=== PATIENT | male | born 1965 | race Caucasian/White ===

== ENCOUNTER → 2021-09-17 14:45 | Outpatient (BNVA) | payer OTHER, SELFPAY | PROVIDERS: Family Provider Pediatrics Adolescent Medicine; PCP Family Medicine; Visit Provider Family Medicine | DX: F32.9 Major depressive disorder, single episode, unspecified (principal); Z76.89 Persons encountering health services in other specified circumstances | CPT/HCPCS: 80053; 84439; 84443; 85025 ==

== ENCOUNTER → 2022-10-07 08:48 | Outpatient (BNVA) | payer BC, OTHER, SELFPAY | PROVIDERS: Family Provider Pediatrics Adolescent Medicine; PCP Family Medicine; Visit Provider Family Medicine | DX: F32.9 Major depressive disorder, single episode, unspecified (principal); R79.89 Other specified abnormal findings of blood chemistry; K21.9 Gastro-esophageal reflux disease without esophagitis | CPT/HCPCS: 80053; 84439; 84443; 85025 ==

== ENCOUNTER → 2023-03-10 08:48 | Outpatient (BNVA) | payer BC, OTHER, SELFPAY | PROVIDERS: Family Provider Pediatrics Adolescent Medicine; PCP Family Medicine; Visit Provider Family Medicine | DX: R53.83 Other fatigue (principal); E03.9 Hypothyroidism, unspecified | CPT/HCPCS: 84439; 84443 ==

== ENCOUNTER 2024-03-23 08:03 | Outpatient (CLI) | payer OTHER, SELFPAY ==
--- NOTE | 2024-03-23 08:08 | FL_ITS ---
WS: [id number] Barium swallow and esophagram, 03/23/2024 Clinical Data: DYSPHAGIA Comparison: None. Fluoroscopy time: 0min [id number] # of spot films: 7 Findings: The patient swallowed the thick and thin barium, and it flowed through the hypopharynx without hesita tion. No stricture, mass, polyp or erosion was seen. No aspiration or penetration occurred The barium entered the esophagus and there was normal motility throughout. No stricture, polyp, mas s, erosion or ulcer was noted. No reflux was present. There is a small sliding hiatal hernia with a S chatzki ring and there was mild reflux. FL/FL barium swallow [id number] Impression: Small sliding hiatal hernia with minimal gastroesophageal reflux.
--- NOTE | 2024-03-23 08:08 | CT_ITS ---
WS: [id number] CT NECK TECHNIQUE: Contrast-enhanced CT of the neck with coronal and sagittal reformatted images. CLINICAL INFORMATION: DYSPHAGIA COMPARISON: None. DLP: 298.[address] scans at [facility] use at least one of these dose optimization techniques: automated e xposure control; mA and/or kV adjustment per patient size (includes targeted exams where dose is matc hed to clinical indication); or iterative reconstruction. FINDINGS: Mild mucosal thickening in the ethmoid air cells. Mastoid air cells are well aerated. Normal posterio r nasopharynx. Normal parapharyngeal fat. Dental artifact degrades some images at the tongue base. Normal parotid glands. Normal submandibular glands. Few incidental tonsillar calcifications. No evide nce of supraglottic or glottic mass. Normal subglottic airway. Normal thyroid gland. Lung apices are well aerated. Normal visualized cervical spine. CT/CT neck w con* [id number] IMPRESSION: 1. No suspicious neck findings. 2. No cervical lymphadenopathy. 3. Normal salivary glands.
[2024-03-23] MEDS: iohexol 300 mg/mL 100 mL Btl IV (08:30)
== END 2024-03-23 08:04 | disposition home or self-care (01) ==
LOC: RAD 08:03
PROVIDERS: Family Provider Pediatrics Adolescent Medicine; PCP Family Medicine; Visit Provider Specialist
DX: R13.10 Dysphagia, unspecified (principal); K44.9 Diaphragmatic hernia without obstruction or gangrene
CPT/HCPCS: 70491; 74220; Q9967